=== PATIENT | female | born 1980 | race Caucasian/White ===

== ENCOUNTER 2019-03-17 21:38 | Emergency (ER) | payer MEDICAID, OTHER ==
[2019-03-17] MEDS ORDERED: Augmentin 875-125 Tablet PO ONE (22:39)
[2019-03-17] MEDS ORDERED: TYLENOL 325 MG PO STA (22:39)
[2019-03-17] MEDS ORDERED: TYLENOL 325 MG ONE (22:48)
[2019-03-17] MEDS ORDERED: Augmentin 875-125 Tablet ONE (22:48)
--- NOTE | 2019-03-17 23:46 | ERPHSYRPT ---
- History of Present Illness Time Seen by Provider: 03/17/19 22:25 Source: patient Exam Limitations: clinical condition Patient Subjective Stated Complaint: stepped on nail Triage Nursing Assessment: Pt states she stepped on a nail with shoes on and it went through the shoe. States she stepped on the head of the nail not the sharp end and she felt the head of sales promotion go into her foot. Toes and foot slightly swollen. Has pain when she bends her toes. small puncture site underfoot, no drainage noted. States shes unsure when her last tetanus shot was Physician History: PATIENT STEPPED ONTO A NAIL THROUGH HER SHOE SUSTAINED PUNCTURE BELOW HER RIGHT FOOT. HAS PAIN AND SWELLING, BELOW RIGHT FOOT. DENIES FEVER OR CHILLS. Method of Injury: incised Occurred: just prior to arrival Quality: constant Severity of Pain-Max: moderate Severity of Pain-Current: moderate Lower Extremities Pain: foot: right Modifying Factors: Improves With: movement Associated Symptoms: unable to bear weight Allergies/Adverse Reactions: No Known Drug Allergies Allergy (Unverified 03/06/14 11:51) Hx Tetanus, Diphtheria Vaccination/Date Given: (unsure) Hx Influenza Vaccination/Date Given: Yes (FALL) Hx Pneumococcal Vaccination/Date Given: No - Review of Systems Musculoskeletal: Injury, Other (PUNCTURE BELOW RIGHT FOOT) Neurological: No Symptoms Psychological: No Symptoms Endocrine: No Symptoms - Past Medical History Pertinent Past Medical History: Yes Other Medical History: hx chlamydia - Past Surgical History Past Surgical History: No Neuro Surgical History: No Pertinent History Cardiac: No Pertinent History Respiratory: No Pertinent History Gastrointestinal: No Pertinent History Genitourinary: No Pertinent History Musculoskeletal: No Pertinent History Female Surgical History: No Pertinent History - Social History Smoking Status: Never smoker Exposure to second hand smoke: Yes Drug Use: none - Female History Hx Now: No (depo shot) - Nursing Vital Signs Nursing Vital Signs: Initial Vital Signs Temperature 98.4 F 03/17/19 22:10 Pulse Rate 82 03/17/19 22:10 Respiratory Rate 18 03/17/19 22:10 Blood Pressure 142/75 03/17/19 22:10 O2 Sat by Pulse Oximetry 98 03/17/19 22:10 Pain Scale Pain Intensity 3 - Physical Exam General Appearance: no apparent distress Foot Exam: right foot: pain, soft tissue tenderness (THERE IS A 1MM PUNCTURE WOUND MID 2ND METATARSAL PLANTAR, WITH SURROUNDING SWELLING AND TENDERNESS, NO DRAINAGE) DTR - Lower Extremities Exam: knee (R): 2+, knee (L): 2+, ankle (R): 2+ Neuro/Tendon Exam: normal sensation SpO2: 98 - Radiology Exams Right Foot X-ray Interpretation: Interpreted by me (NO EVIDENCE OF RADIO-OPAQUE FOREIGN BODY) Ordered Tests: Active Orders 24 hr Category Date Time Status FOOT (MINIMUM 3 VIEWS) Stat Exams 03/17/19 22:39 Taken Medication Summary Discontinued Medications Generic Name Dose Route Start Last Admin Trade Name Ana PRN Reason Stop Dose Admin Acetaminophen 650 mg 03/17/19 22:39 03/17/19 22:50 Tylenol 325 Mg PO 03/17/19 22:40 650 mg STAT STA Administration Acetaminophen Confirm 03/17/19 22:48 Tylenol 325 Mg Administered 03/17/19 22:49 Dose 650 mg .ROUTE .STK-MED ONE Amoxicillin/Clavulanate Potassium 875 mg 03/17/19 22:39 03/17/19 22:50 Augmentin 875-125 Tablet PO 03/17/19 22:40 875 mg STAT ONE Administration Amoxicillin/Clavulanate Potassium Confirm 03/17/19 22:48 Augmentin 875-125 Tablet Administered 03/17/19 22:49 Dose 875 mg .ROUTE .STK-MED ONE - Progress Progress Note: 03/17/19 23:45 ADMINISTERED TYLENOL 650MG AND AUGMENTIN 875LMG ORALLY - Departure Departure Disposition: Home Clinical Impression: Puncture wound of right foot Condition: Stable Critical Care Time: No Referrals: TYRESE MAHONEY [Primary Care Provider] - Additional Instructions: ANTIBIOTIC AUGMENTIN 875MG TWICE DAILY FOR 10 DAYS. WATCH FOR SIGNS OF INFECTION REDNESS, DRAINAGE. TYLENOL OR MOTRIN NEEDED FOR PAIN. Prescriptions: Amox Tr/Potass Clav. 875 mg [Augmentin 875-125 Tablet] 875 mg PO BID #20 tablet
[2019-03-17] MEDS ORDERED: Adacel Vial IM ONE ×2 (23:50→23:51)
[2019-03-18] VITALS: BP 136/88; PULSE 70; O2SAT 96
--- NOTE | 2019-03-18 09:57 | XRAY ---
Indication: Stepped on nail around 2nd-3rd MTP. Comparison: None 3 nonweightbearing views of the right foot demonstrates punctate calcification base 3rd proximal phalanx either degenerative versus old injury. Elsewhere mild spurring of the midfoot anteriorly and calcaneus. No other bony, articular, or soft tissue abnormalities.
== END 2019-03-18 00:02 | disposition home or self-care (01) ==
LOC: ED 21:38
DX: S91.331A Puncture wound without foreign body, right foot, initial encounter (principal); W22.8XXA Striking against or struck by other objects, initial encounter
CPT/HCPCS: 73630; 90471; 90715; 99284; A9270-GY

== ENCOUNTER 2024-08-20 06:08 | Day surgery (SDC) | payer OTHER ==
[2024-08-20 06:35] VITALS: RESP 16
[2024-08-20] MEDS ORDERED: XYLOCAINE 1% HCL 20 ML MDV ONE (07:44)
[2024-08-20] MEDS ORDERED: XYLOCAINE 1%/Epi 1:100000 MDV 20 ML ONE (07:45)
[2024-08-20 08:36] VITALS: O2SAT 100
[2024-08-20 08:46] VITALS: BP 131/88; PULSE 58; TEMP 97.5
--- NOTE | 2024-08-21 11:11 | OP ---
SURGERY DATE/TIME: 08/20/2024 0800- PREOPERATIVE DIAGNOSIS: Prepatellar bursitis, right knee. POSTOPERATIVE DIAGNOSIS: Gouty prepatellar bursitis, right knee. PROCEDURE: Excision of right prepatellar bursa. SURGEON: Albino Eldridge II, DO ANESTHESIA: Local with 1% Xylocaine with epinephrine. DESCRIPTION OF PROCEDURE AND FINDINGS: The patient was identified and informed consent was obtained. The patient was taken to the operative suite and placed in the supine position on the operating table where the right leg was prepped and draped in the usual sterile fashion. A standard time-out was taken. Incision was carried out over the prepatellar bursa. Skin was incised. Dissection was carried out through the subcutaneous tissue. The small bursa sac was shelled out of its bed in toto. Base was cauterized with electrocautery unit. The wound was then irrigated and closed with 3-0 Monocryl and 4-0 nylon. Adaptic, 4 x 4's, and a sterile dressing applied. Patient was transferred to the cart and taken to day surgery in satisfactory condition having tolerated the procedure well.
== END 2024-08-20 08:49 | disposition home or self-care (01) ==
LOC: SDC 06:08
PROVIDERS: ATTEND Orthopaedic Surgery
DX: M70.41 Prepatellar bursitis, right knee (principal)
CPT/HCPCS: 27340